=== PATIENT | female | born 1995 | race Caucasian/White ===

== ENCOUNTER 2017-03-06 05:45 | Emergency (ER) | payer OTHER ==
[~2017-03-06] VITALS: Ht 167.6 cm; Wt 85.7 kg
[~2017-03-06 05:45] MED LIST: AMPH10TA2 PO; BCPILLS PO; CITA20TA9 PO
[2017-03-06 05:48] VITALS: Ht 167.6 cm; Wt 85.7 kg
[2017-03-06] MEDS ORDERED: PSEUDOEPHEDRINE HCL 30 MG TAB PO STA (05:58)
[2017-03-06] MEDS ORDERED: ACETAMINOPHEN 500 MG TAB PO STA (05:58)
[2017-03-06] MEDS ORDERED: AMPH15CA7 PO (06:00)
[2017-03-06] MEDS ORDERED: MONT1TAB3 PO (06:01)
[2017-03-06] MEDS ORDERED: LEVO5TAB2 PO (06:01)
[2017-03-06] MEDS ORDERED: ALBUTEROL HFA 8 GM INHALER INH STA (06:16)
[2017-03-06 06:25] LABS: INFLUENZA B ANTIGEN Neg for Influ B (NEG)
--- NOTE | 2017-03-06 06:29 | DIAGNOSTIC IMAGING REPORT ---
CHEST 2 VIEWS ROUTINE CLINICAL HISTORY: cough/fever dyspnea COMPARISON STUDY: 08/24/2014 FINDINGS: The bones soft tissues and hemidiaphragms are normal. The cardiomediastinal silhouette is normal. The lungs are clear. The pulmonary vasculature is normal. IMPRESSION: Negative chest. The above report was generated using voice recognition software. It may contain grammatical, syntax or spelling errors. Electronically signed by: Angel Norman M.D. 03/06/2017 6:28 AM Dictated Date/Time: 03/06/2017 6:28 AM
[2017-03-06 06:30] VITALS: BP 115/77; PULSE 77; TEMP 36.8; O2SAT 96
--- NOTE | 2017-03-06 06:30 | EMERGENCY ROOM VISIT NOTE ---
History First contact with patient: 05:52 Chief Complaint: FLU LIKE SX Stated Complaint: FEVER,BODY ACHES, UPPER RESPIRATORY SX History of Present Illness The patient is a 21 year old female who presents to the Emergency Room with complaints of fever, chills, cough, congestion, myalgias and arthralgias for past 3 days. 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 She did receive the flu vaccine. Patient denies chest pain, dyspnea, neck stiffness, abdominal pain, vomiting, diarrhea. She is tolerating fluids but has a decreased appetite. Review of Systems See HPI for pertinent positives & negatives. A total of 10 systems reviewed and were otherwise negative. Past Medical/Surgical History Medical Problems: (1) Generalized anxiety disorder (2) Migraine Unspecified W/O Intract Mgrn W/O Status Migrainosus Surgical Problems: (1) No history of previous surgery Family History Anxiety disorder Social History Smoking Status: Never Smoker Alcohol Use: occasionally Drug Use: none Marital Status: single Housing Status: lives with significant other Occupation Status: employed Current/Historical Medications Scheduled Amphetamine-Dextroamphetamine 15MG (Adderall Xr 15MG), 15 MG PO DAILY Control Pills ( Control Pills), 1 TAB PO DAILY Citalopram Hydrobromide (Celexa), 30 MG PO DAILY Levocetirizine Dihydrochloride (Xyzal), 1 TAB PO DAILY Montelukast Sodium (Singulair), 10 MG PO DAILY Physical Exam Vital Signs Date Time Temp Pulse Resp B/P (MAP) Pulse Ox O2 Delivery O2 Flow Rate FiO2 03/06/17 05:48 38.3 105 18 116/78 96 Room Air Physical Exam VITALS: Vitals are noted on the nurse's note and reviewed by myself. Vital signs febrile. GENERAL: Pleasant female, in no acute distress, nondiaphoretic, well-developed well-nourished. SKIN: The skin was without rashes, erythema, edema, or bruising. There is no tenting of the skin. Capillary reflex less than 2 seconds. HEAD: Normocephalic atraumatic. EARS: External auditory canals clear, tympanic membranes pearly gallagher without erythema or effusion bilaterally. EYES: Pupils equal round and reactive to light and accommodation. Conjunctivae without injection, sclerae without icterus. Extraocular movements intact. NOSE: Patent, turbinates without inflammation or discharge. No sinus tenderness. MOUTH: Mucous membranes mildly dry pharynx without erythema or exudate. Uvula midline. Airway patent. Tongue does not deviate. NECK: Supple without nuchal rigidity. No lymphadenopathy. No thyromegaly. Cervical spine is nontender. No JVD. No meningeal signs HEART: Regular rate and rhythm without murmurs gallops or rubs. LUNGS: Clear to auscultation bilaterally without wheezes, rales or rhonchi. No dullness to percussion. No retractions or accessory muscle use. ABDOMEN: Positive bowel sounds x 4. Normal tympanic percussion. Soft, nontender, without masses or organomegaly. Barnett sign negative. No guarding or rebound tenderness. MUSCULOSKELETAL: No muscle atrophy, erythema, or edema noted. NEURO: Patient was alert and oriented to person place and time. Normal sensation to light and sharp touch. No focal neurological deficits. Medical Decision & Procedures Laboratory Results Test 03/06/17 05:55 Influenza Type A Antigen POS for Influ A (NEG) Influenza Type B Antigen Neg for Influ B (NEG) Medications Administered Medications (Trade) Dose Ordered Sig/Kayley Route Start Time Stop Time Status Last Admin Dose Admin Acetaminophen (Tylenol Tab) 1,000 mg NOW STAT PO 03/06/17 05:58 03/06/17 06:00 DC 03/06/17 06:18 1,000 MG Pseudoephedrine HCl (Sudafed Tab) 60 mg NOW STAT PO 03/06/17 05:58 03/06/17 06:00 DC 03/06/17 06:17 60 MG Albuterol (Ventolin Hfa Inhaler) 2 puffs ONE STAT INH 03/06/17 06:16 03/06/17 06:17 DC 03/06/17 06:23 2 PUFFS ED Course Prior records/ancillary studies reviewed. Triage Nursing notes reviewed. The patient's history was concerning for fever. Differential diagnosis: Etiologies such as viral syndrome, otitis, pharyngitis, pneumonia, influenza, meningitis, urinary tract infection, sepsis, bacteremia, as well as others were entertained. Physical examination: Patient is alert and mildly ill-appearing ER treatment provided: By mouth fluids, Tylenol, Sudafed, albuterol On reassessment the patient felt better. Diagnostics interpreted by me: The labs revealed flu a Imaging studies: Chest x-ray with no acute consolidation, pneumothorax or free air per my interpretation This appears to be consistent with influenza. Patient was advised to continue supportive care for her flulike illness and stay well-hydrated. She is advised no work until 24 hours fever free as she is contagious. She is advised to rest, stay well-hydrated, follow-up family care in a few days or here in the ER sooner for high fevers, lethargy, neck stiffness, is worsening signs or symptoms or as needed. By the evaluation outlined above emergent etiologies such as otitis, pharyngitis, pneumonia, meningitis, urinary tract infection, sepsis, bacteremia, as well as others were deemed relatively unlikely. The pt informed about the findings as listed above. All questions were answered and pleased with the treatment. Return instructions were outlined and the patient was discharged in stable condition. Referral: The patient was referred back to their primary care physician for follow-up in 2 to 3 days for a recheck of the current condition. Medical Decision As above Medication Reconcilliation Current Medication List: was personally reviewed by me Blood Pressure Screening Patient's blood pressure: Normal blood pressure Impression Primary Impression: Influenza A Departure Information Dispostion Home / Self-Care Condition GOOD Referrals Ralf Hutchinson MD (PCP) Patient Instructions My [facility] Additional Instructions Acetaminophen(Tylenol) may be used for fever or pain. Use 1000mg every six hours as needed. Avoid using more than 3000mg in a 24 hour period. (AND/OR) Ibuprofen(Motrin, Advil) may be used for fever or pain. Use 600mg every six hours as needed. Take with food. Avoid using more than 2400mg in a 24 hour period. Do not use 2400mg per day for more than three consecutive days without physician direction. Prolonged inappropriate use can lead to stomach upset or ulcers. Afrin nasal spray: 2-3 sprays to each nostril twice daily as needed for congestion. Do not use for more than 3-4 days because it can lead to worsening rebound congestion. Pseudoephedrine(Sudaphed): 30-60mg every 6 hours as needed for nasal congestion. Do not take this with other stimulant products or supplements. Albuterol Inhaler: Take 2 puffs four times daily for seven days, then as needed. Rest and drink plenty of fluids. Controlling your fever with Tylenol and Ibuprofen as above will make you feel better. Wash your hands after nose blowing, sneezing, or coughing. Most germs are spread through contact, therefore improper hygiene may result in your close contacts and loved ones becoming ill just like you. Continue current medications. Return to the ER for severe headache, neck stiffness, chest pain, difficulty breathing, fevers, vomiting, worsening of your condition, or as needed. Follow up with your primary physician this week for a recheck of your current condition.
== END 2017-03-06 06:32 | disposition home or self-care (01) ==
LOC: C.EDB 05:47
DX: J10.1 Influenza due to other identified influenza virus with other respiratory manifestations (principal); F41.1 Generalized anxiety disorder; Z79.3 Long term (current) use of hormonal contraceptives; Z81.8 Family history of other mental and behavioral disorders

== ENCOUNTER 2022-07-05 23:59 | Inpatient (IN) ==
[2022-07-06] MEDS ORDERED: ALBUT/IPRATROP 3MG/0.5MG NEB 3 ML VIAL NEB STA (00:20)
[2022-07-06] MEDS ORDERED: dexAMETHasone**PF** 10 MG/ML VIAL PO ONE (00:20)
[2022-07-06] MEDS ORDERED: SODIUM CHLORIDE 0.9% 1000ML 1,000 ML IV ONE (01:49)
[2022-07-06 02:07] LABS: Basophils # (auto) 0.04 K/uL (0-0.2); Basophils % (auto) 0.4 %; Eosinophils # (auto) 0.09 K/uL (0-0.50); Hemoglobin 14.1 g/dl (12.0-16.0); Immature Granulocytes # (auto) 0.04 K/uL (0.01-0.20); Immature Granulocytes % (auto) 0.4 %; Lymphocytes # (auto) 0.85 K/uL (1.2-3.4); Lymphocytes % (auto) 9.2 %; Mean Corpuscular Hemoglobin 31.4 pg (25.0-34.0); Mean Corpuscular Hgb Conc 33.6 g/dL (32.0-36.0); Mean Corpuscular Volume 93.5 fL (80.0-100.0); Monocytes # (auto) 0.45 K/uL (0.11-0.59); Monocytes % (auto) 4.9 %; Neutrophils # (auto) 7.79 K/uL (1.40-6.50); Neutrophils % (auto) 84.1 %; Platelet Count 207 K/uL (130-400); RDW Coefficient of Variation 13.9 % (11.5-14.5); RDW Standard Deviation 47.3 fL (36.4-46.3); Red Blood Count 4.49 M/uL (4.20-5.40); White Blood Count 9.26 K/ul (4.8-10.8)
[2022-07-06 02:24] LABS: Albumin Globulin Ratio 1.3 (0.9-2); Albumin Level 3.9 gm/dl (3.4-5.0); BUN Creatinine Ratio 9.6 (10-20); Bilirubin,Total 0.4 mg/dl (0.2-1.0); Calcium 8.7 mg/dl (8.6-10.3); Creatinine Clr Calc Pharmacy 121.4 ml/min; Est GFR (African American) 112.8 ml/min; Est GFR (Non-African American) 97.3 ml/min; Magnesium 1.9 mg/dl (1.7-2.4); Potassium 3.9 mmol/L (3.5-5.1); Total Protein 6.9 gm/dl (6.0-8.3)
[2022-07-06 02:30] LABS: Troponin I High Sensitivity 3.3 pg/ml (0-14)
[2022-07-06 02:33] LABS: Prothrombin Time 10.7 Seconds (9.0-12.0)
[2022-07-06 02:36] LABS: D Dimer 590 ug/L FEU (0-500)
[2022-07-06] MEDS ORDERED: OPTIRAY 320 500ml IV ONE (03:17)
--- NOTE | 2022-07-06 03:25 | Emergency Department Note ---
Impression & Plan Multifocal pneumonia, Hypoxia ED Provider Note CHIEF COMPLAINT: Cough, fever HISTORY OF PRESENT ILLNESS: This 26-year-old female patient presents to the emergency department via private vehicle for evaluation of 4-day history of cough and fever. The patient states on Tuesday, 1 to 2 days into the illness, she developed cough and fever. The patient states there was some mild shortness of breath. She was started on Augmentin at that time. The patient states she is using albuterol inhaler 2 puffs every 4 hours without significant improvement in her symptoms. She is still feeling short of breath, persistent coughing, and still having fevers. The patient denies any chest pain. No abdominal pain, nausea, vomiting. No coughing up blood. She is coughing up some sputum. She reports a fullness in the right side of the chest. Patient denies any leg pain or swelling. No recent travel. She is not on estrogen control. REVIEW OF SYSTEMS: A 10 system review of systems was performed with positives and pertinent negatives listed in the history of present illness. All other systems were reviewed and are negative. ALLERGIES: None PHYSICAL EXAM: VITALS: Vitals are noted on the nurse's note and reviewed by myself. Vital signs stable. GENERAL: This is a 26-year-old female, in no acute distress, nondiaphoretic, well-developed well-nourished. SKIN: The skin was without rashes, erythema, edema, or bruising. There is no tenting of the skin. Capillary refill less than 2 seconds. HEAD: Normocephalic atraumatic. EARS: External auditory canals clear, tympanic membranes pearly gallagher without erythema or effusion bilaterally. EYES: Pupils equal round and reactive to light and accommodation. Conjunctivae without injection, sclerae without icterus. Extraocular movements intact. NOSE: Patent, turbinates without inflammation or discharge. No sinus tenderness. MOUTH: Mucous membranes moist. Tonsils are not enlarged. Pharynx without erythema or exudate. Uvula midline. Airway patent. Tongue does not deviate. NECK: Supple without nuchal rigidity. No lymphadenopathy. Cervical spine is nontender. No JVD. HEART: Regular rate and rhythm without murmurs gallops or rubs. LUNGS: Rhonchi noted in the right mid to lower lung solo. No retractions or accessory muscle use. MUSCULOSKELETAL: No muscle atrophy, erythema, or edema noted. Full range of motion without joint tenderness in all extremities. No tenderness to palpation. Normal gait. Strength 5/5 throughout. NEURO: Patient was alert and oriented to person place and time. No focal neurological deficits. CHEST X-ray, interpreted by me: Right lower lobe infiltrate EMERGENCY DEPARTMENT COURSE: The patient was seen and evaluated as above. Patient presents with URI symptoms consistent with bronchitis. Chest x-ray reviewed by me concerning for right lower lobe infiltrate. Patient was med icated with a DuoNeb treatment and Decadron. She was reassessed. At this time, she notes she is feeling slightly better, but continuing to feel somewhat short of breath. I was informed by nursing at this time that the patient did require some oxygen, her O2 saturation dropped to 87% for several minutes. She has been on oxygen since that time. Continuous manager monitoring was applied. This showed a normal sinus rhythm with a ventricular rate of 85 bpm, per my interpretation. Given the hypoxia, we did elect to perform further evaluation. IV access obtained, labs drawn. Patient was medicated with IV fluids. D-dimer was elevated, so CT angiogram of the chest was completed. This was reviewed and was negative for PE, but concerning for multifocal pneumonia. Given the multifocal pneumonia and hypoxia, I did recommend inpatient treatment. The patient was agreeable. She will be admitted to the [facility]. I did speak with Dr. Head. Please see [facility] dictation regarding ongoing management care of this patient. Differential diagnosis includes reactive airway disease, pneumonia, pneumothorax, COPD, CHF, infections, cardiac ischemia, pulmonary embolism, musculoskeletal, gastrointestinal, as well as other pathologies. I attest that I have personally reviewed the patient's current medication list. Patient was found to have normal blood pressure on screening and does not require follow-up. The chart was completed utilizing [employer] voice recognition software. Grammatical errors, random word insertions, pronoun errors, and incomplete sentences are an occasional consequence of this system due to software limitations, ambient noise, and hardware issues. Any formal questions or concerns about the content, text, or information contained within the body of this dictation should be directly addressed to the provider for clarification. Past Med/Surg History Medical History Headache Social History Smoking Status: Former smoker Feels Safe at Home: Yes Allergies Allergies Allergy/AdvReac Type Severity Reaction Status Date / Time No Known Allergies Allergy Unknown Verified 07/06/22 00:58 Home Meds Home Medications Medication Instructions Recorded Confirmed albuterol sulfate 90 mcg/actuation 2 puff inhalation Q4H PRN 07/06/22 07/06/22 aerosol inhaler Shortness Of Breath Or Wheezing amoxicillin 875 mg-potassium 1 tab PO BID 07/06/22 07/06/22 clavulanate 125 mg tablet azelastine 137 mcg (0.1 %) nasal 2 spray intranasal BID 07/06/22 07/06/22 spray aerosol benzonatate 100 mg capsule 100 mg PO TID PRN Cough 07/06/22 07/06/22 dextroamphetamine-amphetamine ER 40 mg PO QAM 07/06/22 07/06/22 20 mg 24hr capsule,extend release hydroxyzine HCl 25 mg tablet 25 mg PO HS PRN Anxiety 07/06/22 07/06/22 levocetirizine 5 mg tablet 5 mg PO DAILY 07/06/22 07/06/22 tretinoin 0.05 % topical cream 1 applic topical HS PRN NEEDED 07/06/22 07/06/22 PER PT venlafaxine 150 mg 150 mg PO QAM 07/06/22 07/06/22 capsule,extended release 24 hr Results & Data (ED) Vital Signs Vital Signs - 24 hr 07/06/22 00:03 07/06/22 01:22 07/06/22 01:56 Temperature 35.9 C L Temperature Source Temporal Artery Scan Pulse Rate 119 H 98 H Pulse Rate [Finger] 94 H Respiratory Rate 20 22 Respiratory Effort / Characteristics Non-Labored Spontaneous Non-Labored Spontaneous Respiratory Depth Normal Normal Blood Pressure 137/84 Blood Pressure [Left Arm] Blood Pressure Mean 101 Blood Pressure Mean [Left Arm] Blood Pressure Position Sitting Pulse Oximetry 93 90 88 L Oxygen Delivery Method Room Air Room Air Room Air Oxygen Flow Rate 0 Sepsis Recent Fever Within 48 Hours Yes Sepsis New/Unexplained Change in Mental Status N/A Sepsis Action Taken by Nursing No Action Required 07/06/22 02:33 07/06/22 03:24 07/06/22 04:44 Temperature Temperature Source Pulse Rate Pulse Rate [Finger] 96 H 99 H 84 Respiratory Rate 20 20 18 Respiratory Effort / Characteristics Non-Labored Spontaneous Non-Labored Spontaneous Respiratory Depth Normal Normal Blood Pressure Blood Pressure [Left Arm] 113/76 113/68 119/76 Blood Pressure Mean Blood Pressure Mean [Left Arm] 88 83 90 Blood Pressure Position Pulse Oximetry 92 92 94 Oxygen Delivery Method Nasal Cannula Nasal Cannula Nasal Cannula Oxygen Flow Rate 3 2 2 Sepsis Recent Fever Within 48 Hours Sepsis New/Unexplained Change in Mental Status Sepsis Action Taken by Nursing 07/06/22 02:25 07/06/22 06:17 Temperature Temperature Source Pulse Rate 98 H 85 Pulse Rate [Finger] Respiratory Rate Respiratory Effort / Characteristics Respiratory Depth Blood Pressure Blood Pressure [Left Arm] Blood Pressure Mean Blood Pressure Mean [Left Arm] Blood Pressure Position Pulse Oximetry Oxygen Delivery Method Oxygen Flow Rate Sepsis Recent Fever Within 48 Hours Sepsis New/Unexplained Change in Mental Status Sepsis Action Taken by Nursing Laboratory Data 07/06/22 01:55 07/06/22 01:55 Lab Results 07/06/22 07/06/22 07/06/22 Range/Units 01:55 01:55 01:55 WBC 9.26 (4.8-10.8) K/ul RBC 4.49 (4.20-5.40) M/uL Hgb 14.1 (12.0-16.0) g/dl Hct 42.0 (37.0-47.0) % MCV 93.5 (80.0-100.0) fL MCH 31.4 (25.0-34.0) pg MCHC 33.6 (32.0-36.0) g/dL RDW Std Deviation 47.3 H (36.4-46.3) fL RDW Coeff of Jovanni 13.9 (11.5-14.5) % Plt Count 207 (130-400) K/uL MPV 10.0 (9.4-12.4) fL Immature Gran % (Auto) 0.4 % Neut % (Auto) 84.1 % Lymph % (Auto) 9.2 % Seneca % (Auto) 4.9 % Eos % (Auto) 1.0 % Baso % (Auto) 0.4 % Neut # (Auto) 7.79 H (1.40-6.50) K/uL Lymph # (Auto) 0.85 L (1.2-3.4) K/uL Seneca # (Auto) 0.45 (0.11-0.59) K/uL Eos # (Auto) 0.09 (0-0.50) K/uL Baso # (Auto) 0.04 (0-0.2) K/uL Immature Gran # (Auto) 0.04 (0.01-0.20) K/uL PT 10.7 (9.0-12.0) Seconds INR 1.0 (0.9-1.1) D-Dimer 590 H* (0-500) ug/L FEU Sodium 137 (136-145) mmol/L Potassium 3.9 (3.5-5.1) mmol/L Chloride 103 (98-107) mmol/L Carbon Dioxide 25 (21-32) mmol/L Anion Gap 9 (3-11) BUN 8 (6-23) mg/dl Creatinine 0.83 (0.6-1.2) mg/dl Est Cr Clr Drug Dosing 121.4 ml/min Est GFR ( Amer) 112.8 ml/min Est GFR (Non-Af Amer) 97.3 ml/min BUN/Creatinine Ratio 9.6 L (10-20) Glucose 101 H (70-99(Fasting)) mg/dl Calcium 8.7 (8.6-10.3) mg/dl Magnesium 1.9 (1.7-2.4) mg/dl Total Bilirubin 0.4 (0.2-1.0) mg/dl AST 23 (13-39) U/L ALT 38 (7-52) U/L Alkaline Phosphatase 72 (34-104) U/L Troponin I High Sens 3.3 (0-14) pg/ml Total Protein 6.9 (6.0-8.3) gm/dl Albumin 3.9 (3.4-5.0) gm/dl Globulin 3.0 (2.5-4.0) gm/dl Albumin/Globulin Ratio 1.3 (0.9-2) Procalcitonin (0-0.5) ng/ml POC Ur Test (NEG) SARS-CoV-2 (PCR) (Negative) Influenza Type A (PCR) (Neg) Influenza Type B (PCR) (Neg) RSV (RT-PCR) (Neg) 07/06/22 07/06/22 07/06/22 Range/Units 01:55 Unknown Unknown WBC (4.8-10.8) K/ul RBC (4.20-5.40) M/uL Hgb (12.0-16.0) g/dl Hct (37.0-47.0) % MCV (80.0-100.0) fL MCH (25.0-34.0) pg MCHC (32.0-36.0) g/dL RDW Std Deviation (36.4-46.3) fL RDW Coeff of Jovanni (11.5-14.5) % Plt Count (130-400) K/uL MPV (9.4-12.4) fL Immature Gran % (Auto) % Neut % (Auto) % Lymph % (Auto) % Seneca % (Auto) % Eos % (Auto) % Baso % (Auto) % Neut # (Auto) (1.40-6.50) K/uL Lymph # (Auto) (1.2-3.4) K/uL Seneca # (Auto) (0.11-0.59) K/uL Eos # (Auto) (0-0.50) K/uL Baso # (Auto) (0-0.2) K/uL Immature Gran # (Auto) (0.01-0.20) K/uL PT (9.0-12.0) Seconds INR (0.9-1.1) D-Dimer (0-500) ug/L FEU Sodium (136-145) mmol/L Potassium (3.5-5.1) mmol/L Chloride (98-107) mmol/L Carbon Dioxide (21-32) mmol/L Anion Gap (3-11) BUN (6-23) mg/dl Creatinine (0.6-1.2) mg/dl Est Cr Clr Drug Dosing ml/min Est GFR ( Amer) ml/min Est GFR (Non-Af Amer) ml/min BUN/Creatinine Ratio (10-20) Glucose (70-99(Fasting)) mg/dl Calcium (8.6-10.3) mg/dl Magnesium (1.7-2.4) mg/dl Total Bilirubin (0.2-1.0) mg/dl AST (13-39) U/L ALT (7-52) U/L Alkaline Phosphatase (34-104) U/L Troponin I High Sens (0-14) pg/ml Total Protein (6.0-8.3) gm/dl Albumin (3.4-5.0) gm/dl Globulin (2.5-4.0) gm/dl Albumin/Globulin Ratio (0.9-2) Procalcitonin 0.07 (0-0.5) ng/ml POC Ur Test NEG (NEG) SARS-CoV-2 (PCR) NEGATIVE (Negative) Influenza Type A (PCR) Negative (Neg) Influenza Type B (PCR) Negative (Neg) RSV (RT-PCR) Negative (Neg) Administered Medications Discontinued Medications Albuterol (Albut/Ipratrop 3mg/0.5mg Neb 3 Ml Vial) 3 ml NEB NOW STA; Protocol Stop: 07/06/22 00:21 Last Admin: 07/06/22 00:30 Dose: 3 ml Documented By: DESEAN Dexamethasone Sodium Phosphate (DexamethasonePf 10 Mg/Ml Vial) 10 mg PO NOW ONE Stop: 07/06/22 00:21 Last Admin: 07/06/22 00:30 Dose: 10 mg Documented By: DESEAN Sodium Chloride (Nss 1000ml) 1,000 mls @ 999 mls/hr IV .Q1H1M ONE Stop: 07/06/22 02:49 Last Infusion: 07/06/22 04:38 Dose: 0 mls/hr Documented By: Admin: 07/06/22 02:29 Dose: 999 mls/hr Documented By: DESEAN Ioversol (Optiray 320 500ml) 125 ml IV ONCE ONE Stop: 07/06/22 03:18 Last Admin: 07/06/22 03:18 Dose: 114 ml Documented By: JAY Imaging Data Radiologist's Impression: Chest CTA 07/06/22 02:37 Exam(s): CTA CHEST IV Amt: 114 ml optiray 320 EXAM: CT Angiography Chest With Intravenous Contrast CLINICAL HISTORY: Hypoxia. TECHNIQUE: Axial computed tomographic angiography images of the chest with intravenous contrast. Automated exposure control was utilized for the study. A dose lowering technique was utilized adhering to the principles of ALARA. MIP reconstructed images were created and reviewed. COMPARISON: CTA chest 08/21/2012 FINDINGS: Pulmonary arteries: Unremarkable. No pulmonary embolus. Aorta: No acute findings. No thoracic aortic aneurysm. Lungs: Diffuse airspace opacities throughout both lungs, right greater than left. Pleural space: Unremarkable. No significant effusion. No pneumothorax. Heart: Unremarkable. No cardiomegaly. No significant pericardial effusion. No evidence of RV dysfunction. Mediastinum: Bilateral hilar lymphadenopathy measures up to 1.2 cm. Bones/joints: No acute fracture. No dislocation. Soft tissues: Unremarkable. Lymph nodes: See above. IMPRESSION: 1. No pulmonary embolus. 2. Diffuse airspace opacities throughout both lungs, right greater than left. This is concerning for multifocal pneumonia and/or aspiration. 3. Bilateral hilar lymphadenopathy measures up to 1.2 cm. This is nonspecific but likely reactive. Electronically signed by: Karen Polo MD 07/06/22 04:11 AM Discharge Plan Visit Data Chief Complaint: Flu Like Symptoms Stated Complaint: FEVER,CHEST CONGESTION,WHEEZING,LUNG PAIN X 5DYS ED Provider: Lesa Zamora ED Midlevel Provider: Luly Rose Discharge Problem: Multifocal pneumonia, Hypoxia Patient Disposition: Admitted As Inpatient Forms Stand Alone Forms: [facility] Prescriptions Prescriptions: No Action venlafaxine 150 mg capsule,extended release 24hr 150 mg PO QAM tretinoin 0.05 % cream 1 applic TOPICAL HS PRN (Reason: NEEDED PER PT) dextroamphetamine-amphetamine 20 mg capsule,extended release 24hr 40 mg PO QAM benzonatate 100 mg capsule 100 mg PO TID PRN (Reason: Cough) hydroxyzine HCl 25 mg tablet 25 mg PO HS PRN (Reason: Anxiety) azelastine 137 mcg (0.1 %) aerosol,spray 2 spray INTRANASAL BID albuterol sulfate 90 mcg/actuation HFA aerosol inhaler 2 puff INHALATION Q4H PRN (Reason: Shortness Of Breath Or Wheezing) amoxicillin-pot clavulanate 875-125 mg tablet 1 tab PO BID Rx Instructions: STARTED 07/04/22 FOR 7 DAYS levocetirizine 5 mg tablet 5 mg PO DAILY Referrals Referrals: Richard Osorio DO [Primary Care Provider] -
[2022-07-06 03:27] LABS: Influenza A virus by PCR Negative (Neg); Influenza B virus by PCR Negative (Neg); RSV by PCR Negative (Neg); SARS CoV2 RNA(COVID-19) Ceph NEGATIVE (Negative)
--- NOTE | 2022-07-06 04:17 | CT Scan Report ---
Exam(s): CTA CHEST IV Amt: 114 ml optiray 320 EXAM: CT Angiography Chest With Intravenous Contrast CLINICAL HISTORY: Hypoxia. TECHNIQUE: Axial computed tomographic angiography images of the chest with intravenous contrast. Automated exposure control was utilized for the study. A dose lowering technique was utilized adhering to the principles of ALARA. MIP reconstructed images were created and reviewed. COMPARISON: CTA chest 08/21/2012 FINDINGS: Pulmonary arteries: Unremarkable. No pulmonary embolus. Aorta: No acute findings. No thoracic aortic aneurysm. Lungs: Diffuse airspace opacities throughout both lungs, right greater than left. Pleural space: Unremarkable. No significant effusion. No pneumothorax. Heart: Unremarkable. No cardiomegaly. No significant pericardial effusion. No evidence of RV dysfunction. Mediastinum: Bilateral hilar lymphadenopathy measures up to 1.2 cm. Bones/joints: No acute fracture. No dislocation. Soft tissues: Unremarkable. Lymph nodes: See above. IMPRESSION: 1. No pulmonary embolus. 2. Diffuse airspace opacities throughout both lungs, right greater than left. This is concerning for multifocal pneumonia and/or aspiration. 3. Bilateral hilar lymphadenopathy measures up to 1.2 cm. This is nonspecific but likely reactive. Electronically signed by: Karen Polo MD 07/06/22 04:11 AM
--- NOTE | 2022-07-06 06:34 | History and Physical Report ---
DATE OF ADMISSION: 07/06/2022. CHIEF COMPLAINT: Flu-like symptoms, cough. HISTORY OF PRESENT ILLNESS: This is a 26-year-old female with past medical history significant for nonseasonal allergic rhinitis, mild persistent asthma, deviated nasal septum, dermatographism, history of allergic bilateral conjunctivitis, history of migraines, generalized anxiety disorder, ADHD, depression, comes with ongoing cough and cold-like symptoms since last . Once in a while she brings up phlegm, lot of cough, cough is causing some headache. Says she had high temperatures of 103F degrees. She went to [facility] on Tuesday and was prescribed Augmentin. As her symptoms not getting better came to the ER. In the ER, at one point, she was desaturating to 88%, requiring 2 L of oxygen and D-dimer was elevated at 590. CTA chest was done. There is no PE, but showed multifocal pneumonia. SARS-CoV-2 PCR negative. Influenza and RSV negative. Procalcitonin 0.07. The patient is resting comfortably, hemodynamically stable. Denies any chest pain. Appetite is down because of illness. Feels nauseous, but no vomiting, no abdominal pain. Normal bowel and bladder movements. No blurred visions, no earache. Has some runny nose. No sore throat. ALLERGIES: No known drug allergies. PAST MEDICAL HISTORY: As mentioned above. PAST SURGICAL HISTORY: Colonoscopy, EGD ,Forearm nevus reoved at [facility] in 1999. MEDICATIONS: The patient is on albuterol 2 puffs inhalation q. 4 hours p.r.n., Augmentin 1 tablet p.o. b.i.d., azelastine 2 sprays intranasal b.i.d., Tessalon Perles 100 mg p.o. t.i.d. p.r.n., dextroamphetamine, Adderall 40 mg p.o. a.m., hydroxyzine 25 mg p.o. at bedtime p.r.n., levocetirizine 5 mg p.o. daily, venlafaxine 150 mg p.o. a.m. FAMILY HISTORY: Significant for sister has allergies, brother has asthma, uncle has Crohn's disease. Sister has eczema, maternal grandmother has hypertension. SOCIAL HISTORY: Smoked cigarettes from [id number]. Alcohol occasional. No drug use. REVIEW OF SYSTEMS: As per HPI. Rest of the review of systems is negative. PHYSICAL EXAMINATION: GENERAL: The patient is obese, not in acute distress. VITAL SIGNS: Temperature 35.9, pulse 84, respiratory rate 18, blood pressure 119/76, oxygen 94% on 2 liters. HEENT: Pupils equal, round and reactive to light. Oral mucosa moist. NECK: No JVD. No neck masses. CARDIOVASCULAR: S1 and S2 heard. Regular rate and rhythm. No murmur, no gallop. RESPIRATORY SYSTEM: Normal AP diameter. No accessory muscle use. Bilateral rhonchi heard. No obvious wheezing. ABDOMEN: Soft, bowel sounds present, nontender, no distention. CENTRAL NERVOUS SYSTEM: Alert and oriented. Speech is clear. No facial droop. Obeys commands. EXTREMITIES: No edema, no erythema. LABORATORY DATA: WBC 9.2, hemoglobin 14.1, hematocrit 42, platelets 207. PT 10.7, INR 1. D-dimer 590. Sodium 137, potassium 3.9, chloride 103, bicarbonate 25, BUN 8, creatinine 0.8, serum glucose 101, calcium 8.7, magnesium 1.9, total bilirubin 0.4, AST 23, ALT 38, alkaline phosphatase 102. Troponin I high sensitivity 3.3. Procalcitonin 0.07. test negative. SARS-CoV-2 PCR negative. Influenza A and B PCR negative. RSV PCR negative. IMAGING DATA: Chest x-ray, no acute findings. CTA of the chest, : 1. No pulmonary embolus. 2. Diffuse airspace opacities throughout both lungs, right greater than left. This is concerning for multifocal pneumonia and/or aspiration. 3. Bilateral hilar lymphadenopathy measures up to 1.2 cm. This is nonspecific but likely reactive. EKG, normal sinus rhythm at a rate of 100, possible left atrial enlargement. ASSESSMENT AND PLAN: This 26-year-old female presents with ongoing respiratory illness and possible mild asthma exacerbation. 1. Multifocal pneumonia on CAT scan, possibly viral pneumonia. Asthma exacerbation.Procalcitonin is negative. Having cold-like symptoms with cough and wheezing going on since last . There is a question of aspiration, so empirically placed on Zosyn and doxycycline. Received Decadron in the ER. We will continue with IV Solu-Medrol 40 mg t.i.d., nebs around the clock and p.r.n. T 2. Mild elevation of D-dimer. CT chest, no pulmonary embolus. 3. History of generalized anxiety disorder, attention-deficit/hyperactivity disorder, depression. Continue her home Adderall and venlafaxine. 4. History of non-seasonal allergic rhinitis. Continue levocetirizine. 5. Deep venous thrombosis prophylaxis: Placed on Lovenox. Addendum: resp biofire positive for metapneumonic virus. Droplet precautions. DISPOSITION: Closely monitor in the med tele. Expect to discharge home and follow with family doctor. Job ID: [id number] [facility]
[2022-07-06 07:04] LABS: Adenovirus PCR Not Detected (NotDetected); Bordetella parapertussis PCR Not Detected (NotDetected); Bordetella pertussis PCR Not Detected (NotDetected); Chlamydia pneumoniae PCR Not Detected (NotDetected); Coronavirus 229E PCR Not Detected (NotDetected); Coronavirus CoV-2 (COVID19)PCR Not Detected (NotDetected); Coronavirus HKU1 PCR Not Detected (NotDetected); Coronavirus NL63 PCR Not Detected (NotDetected); Coronavirus OC43PCR Not Detected (NotDetected); Influenza A PCR Not Detected (NotDetected); Influenza B PCR Not Detected (NotDetected); Mycoplasma pneumoniae PCR Not Detected (NotDetected); Parainfluenza Virus 1 PCR Not Detected (NotDetected); Parainfluenza Virus 2 PCR Not Detected (NotDetected); Parainfluenza Virus 3 PCR Not Detected (NotDetected); Parainfluenza Virus 4 PCR Not Detected (NotDetected); Respiratory Syncytial VirusPCR Not Detected (NotDetected); Rhinovirus/Enterovirus PCR Not Detected (NotDetected)
[2022-07-06 07:11] LABS: Human Metapneumovirus PCR DETECTED (NotDetected)
--- NOTE | 2022-07-06 08:04 | XRay Report ---
XR chest 1V portable HISTORY: cough COMPARISON: Chest CTA 07/06/2022. FINDINGS: Patchy bilateral airspace opacities, right greater the left likely representing a pneumonia . No pneumothorax. No pleural effusions. The cardiac silhouette is normal in size. IMPRESSION: Patchy bibasilar airspace opacities likely representing a pneumonia. ACT 112: Negative or not required by law. Electronically signed by: Lowell Minor M.D. 07/06/2022 7:53 AM
[2022-07-06] MEDS ORDERED: ALBUTEROL HFA 8 GM INHALER INH PRN (08:05)
[2022-07-06] MEDS ORDERED: LEVALBUTEROL HCL 1.25 MG/3 ML NEB NEB PRN (08:05)
[2022-07-06] MEDS ORDERED: POLYETHYLENE (MIRALAX) 17 GM PACK PO PRN (08:05)
[2022-07-06] MEDS ORDERED: NITROGLYCERIN SL 0.4 MG/TAB TAB SL PRN (08:05)
[2022-07-06] MEDS ORDERED: hydrOXYzine HCl 25 MG TAB PO PRN (08:05)
[2022-07-06] MEDS ORDERED: SODIUM CHLORIDE 0.9% 1000ML 1,000 ML IV SCH (08:05)
[2022-07-06] MEDS: CETIRIZINE HCL 10 MG TABLET PO SCH (08:41)
[2022-07-06] MEDS: AZELASTINE HCL 0.1% NASAL 200 SPRAYS/27,400 MCG BTL SCH ×2 (08:41→20:50)
[2022-07-06] MEDS: VENLAFAXINE HCL XR 150 MG CAPXR PO SCH (08:42)
[2022-07-06] MEDS: ENOXAPARIN INJ 40 MG/0.4 ML SYR SQ SCH ×2 (08:42→21:18)
[2022-07-06] MEDS: AMPHETAMINE ASP/SULF/DEXTRAMPH ER 20 MG CAP PO SCH (08:44)
[2022-07-06] MEDS ORDERED: PIPERACILLIN/TAZOBACTAM 4.5 GM (over 30 mins) IV ONE (08:45)
[2022-07-06] MEDS: ACETAMINOPHEN 325 MG TAB PO PRN ×2 (08:45→21:51)
[2022-07-06] MEDS: BENZONATATE 100 MG CAPSULE PO PRN ×2 (08:45→16:48)
[2022-07-06] MEDS ORDERED: XOPENEX/ATROVENT 1.25mg/0.5MG NEB COMBO NEB SCH (09:00)
[2022-07-06] MEDS: methylPREDNISolone 40 MG in SYRINGE 0 ML IV SCH ×3 (09:14→20:50)
[2022-07-06] MEDS: DOXYCYCLINE HYCLATE 100 MG in DEXTROSE 5% 100 ML IV SCH ×2 (09:15→21:18)
[2022-07-06] MEDS: IPRATROPIUM BROMIDE NEB SOLN 0.02% 2.5 ML VIAL INH SCH ×4 (11:35→19:22)
[2022-07-06] MEDS: LEVALBUTEROL 1.25MG/0.5ML NEB INH SCH ×4 (11:35→19:22)
[2022-07-06] MEDS: PIPERACILLIN/TAZOBACTAM 4.5 GM in DEXTROSE 5% 100 ML IV SCH ×2 (13:37→20:50)
--- NOTE | 2022-07-06 19:56 | Electrocardiogram Report ---
Test Reason : Blood Pressure : / mmHG Vent. Rate : 100 BPM Atrial Rate : 100 BPM P-R Int : 138 ms QRS Dur : 074 ms QT Int : 344 ms P-R-T Axes : 039 001 038 degrees QTc Int : 443 ms Normal sinus rhythm Possible Left atrial enlargement Septal infarct , age undetermined Abnormal ECG When compared with ECG of 24-AUG-2014 18:53, Septal infarct is now Present Confirmed by Sidney Fabian ([id number]) on 07/06/2022 7:55:36 PM Referred By: REFERRED SELF Confirmed By:Sidney Fabian
[2022-07-07] MEDS: guaiFENesin SUGAR FREE 200 MG/10 ML UDC PO PRN ×3 (04:06→21:58)
[2022-07-07 05:58] LABS: Basophils # (auto) 0.01 K/uL (0-0.2); Basophils % (auto) 0.1 %; Hematocrit (blood only) 40.4 % (37.0-47.0); Hemoglobin 13.6 g/dl (12.0-16.0); Immature Granulocytes # (auto) 0.07 K/uL (0.01-0.20); Immature Granulocytes % (auto) 0.7 %; Lymphocytes # (auto) 0.77 K/uL (1.2-3.4); Lymphocytes % (auto) 7.6 %; Mean Corpuscular Hemoglobin 31.8 pg (25.0-34.0); Mean Corpuscular Hgb Conc 33.7 g/dL (32.0-36.0); Mean Corpuscular Volume 94.4 fL (80.0-100.0); Monocytes # (auto) 0.59 K/uL (0.11-0.59); Monocytes % (auto) 5.8 %; Neutrophils # (auto) 8.74 K/uL (1.40-6.50); Neutrophils % (auto) 85.8 %; Platelet Count 263 K/uL (130-400); RDW Coefficient of Variation 13.8 % (11.5-14.5); RDW Standard Deviation 47.9 fL (36.4-46.3); Red Blood Count 4.28 M/uL (4.20-5.40); White Blood Count 10.18 K/ul (4.8-10.8)
[2022-07-07] MEDS: PIPERACILLIN/TAZOBACTAM 4.5 GM in DEXTROSE 5% 100 ML IV SCH ×2 (06:06→13:52)
[2022-07-07 06:15] LABS: BUN Creatinine Ratio 15.7 (10-20); Est GFR (African American) 138.6 ml/min; Est GFR (Non-African American) 119.6 ml/min; Magnesium 2.2 mg/dl (1.7-2.4); Potassium 4.8 mmol/L (3.5-5.1)
[2022-07-07] MEDS: IPRATROPIUM BROMIDE NEB SOLN 0.02% 2.5 ML VIAL INH SCH ×4 (07:16→20:34)
[2022-07-07] MEDS: LEVALBUTEROL 1.25MG/0.5ML NEB INH SCH ×4 (07:16→20:34)
[2022-07-07] MEDS: DOXYCYCLINE HYCLATE 100 MG in DEXTROSE 5% 100 ML IV SCH ×2 (08:50→19:46)
[2022-07-07] MEDS: AZELASTINE HCL 0.1% NASAL 200 SPRAYS/27,400 MCG BTL SCH ×2 (08:51→21:51)
[2022-07-07] MEDS: CETIRIZINE HCL 10 MG TABLET PO SCH (08:51)
[2022-07-07] MEDS: VENLAFAXINE HCL XR 150 MG CAPXR PO SCH (08:51)
[2022-07-07] MEDS: AMPHETAMINE ASP/SULF/DEXTRAMPH ER 20 MG CAP PO SCH (09:01)
[2022-07-07] MEDS: methylPREDNISolone 40 MG in SYRINGE 0 ML IV SCH ×3 (09:01→21:50)
[2022-07-07] MEDS: BENZONATATE 100 MG CAPSULE PO PRN ×2 (09:01→16:11)
[2022-07-07] MEDS: ENOXAPARIN INJ 40 MG/0.4 ML SYR SQ SCH ×2 (09:03→19:37)
--- NOTE | 2022-07-07 14:40 | Hospitalist Progress Note ---
Date of Service July 07, 2022 Assessment & Plan (1) Multifocal pneumonia: (2) Hypoxia: Plan: + metapneumonic virus This 26-year-old female presents with ongoing respiratory illness and possible mild asthma exacerbation. 1. Multifocal pneumonia on CAT scan, possibly viral pneumonia. Asthma exacerbation. Procalcitonin is negative. Having cold-like symptoms with cough and wheezing going on since last . Initially on admission question of aspiration, so empirically placed on Zosyn and doxycycline. Received Decadron in the ER.Continue with IV Solu-Medrol 40 mg t.i.d., nebs around the clock and p.r.n. T Resp biofire positive for metapneumonic virus. Droplet precautions. Will de-escalate Abx from zosyn to rocephin, cont. to monitor Sputum cultx obtained and pending 2. Mild elevation of D-dimer. CT chest, no pulmonary embolus. 3. History of generalized anxiety disorder, attention-deficit/hyperactivity disorder, depression. Continue her home Adderall and venlafaxine. 4. History of non-seasonal allergic rhinitis. Continue levocetirizine. DVT prophylaxis: Placed on Lovenox. DISPOSITION: med tele. Expect to discharge home and follow with family doctor. Admission and Anticipated Discharge Date Admission Date: July 06, 2022 Subjective Pt seen in follow up of hypoxia, hx of asthma, + metapneumovirus Currently sitting up in chair in NAD Reports feeling better and having more energy Currently on room air No fevers chills chest pain, no abdominal pain Review of Systems Review of Systems: All systems reviewed & are unremarkable except as noted in Subjective Physical Exam Physical Exam: GENERAL:obese F, not in acute distress. HEENT: NC/AT. EOMI. Pupils equal, round and reactive to light. Oral mucosa moist. NECK: No JVD. No neck masses. CARDIOVASCULAR: S1 and S2 heard. Regular rate and rhythm. No murmur, no gallop. RESPIRATORY: Normal AP diameter. No accessory muscle use. Bilateral rhonchi heard. No obvious wheezing. ABDOMEN: Soft, bowel sounds present, nontender, no distention. NEURO: Alert and oriented. Speech is clear. No facial droop. Obeys commands. EXTREMITIES: No edema, no erythema. Results & Data Results & Data Vital Signs (Past 12 Hours) Vital Signs Temp Pulse Pulse Resp BP Pulse Ox O2 Del Method 07/07/22 11:25 37.4 C 96 H 16 113/68 93 Room Air 07/07/22 10:52 89 18 95 Room Air 07/07/22 10:48 Nasal Cannula 07/07/22 08:23 36.9 C 83 16 125/67 91 Nasal Cannula 07/07/22 07:17 72 07/07/22 07:17 95 H 19 95 Nasal Cannula 07/07/22 03:00 36.8 C 87 20 105/72 89 L Nasal Cannula O2 Flow Rate 07/07/22 11:25 07/07/22 10:52 07/07/22 10:48 2 07/07/22 08:23 1 07/07/22 07:17 07/07/22 07:17 2 07/07/22 03:00 2 Laboratory Results 07/07/22 07/07/22 Range/Units 05:33 05:33 WBC 10.18 (4.8-10.8) K/ul RBC 4.28 (4.20-5.40) M/uL Hgb 13.6 (12.0-16.0) g/dl Hct 40.4 (37.0-47.0) % MCV 94.4 (80.0-100.0) fL MCH 31.8 (25.0-34.0) pg MCHC 33.7 (32.0-36.0) g/dL RDW Std Deviation 47.9 H (36.4-46.3) fL RDW Coeff of Jovanni 13.8 (11.5-14.5) % Plt Count 263 (130-400) K/uL MPV 10.0 (9.4-12.4) fL Immature Gran % (Auto) 0.7 % Neut % (Auto) 85.8 % Lymph % (Auto) 7.6 % Carter % (Auto) 5.8 % Eos % (Auto) 0.0 % Baso % (Auto) 0.1 % Neut # (Auto) 8.74 H (1.40-6.50) K/uL Lymph # (Auto) 0.77 L (1.2-3.4) K/uL Carter # (Auto) 0.59 (0.11-0.59) K/uL Eos # (Auto) 0.00 (0-0.50) K/uL Baso # (Auto) 0.01 (0-0.2) K/uL Immature Gran # (Auto) 0.07 (0.01-0.20) K/uL Sodium 140 (136-145) mmol/L Potassium 4.8 D (3.5-5.1) mmol/L Chloride 104 (98-107) mmol/L Carbon Dioxide 28 (21-32) mmol/L Anion Gap 8 (3-11) BUN 11 (6-23) mg/dl Creatinine 0.70 (0.6-1.2) mg/dl Est Cr Clr Drug Dosing 143.0 ml/min Est GFR ( Amer) 138.6 ml/min Est GFR (Non-Af Amer) 119.6 ml/min BUN/Creatinine Ratio 15.7 (10-20) Glucose 122 H (70-99(Fasting)) mg/dl Calcium 9.0 (8.6-10.3) mg/dl Magnesium 2.2 (1.7-2.4) mg/dl Medications Administered Current Inpatient Medications Acetaminophen (Acetaminophen 325 Mg Tab) 650 mg PO Q4H PRN PRN Reason: Pain or Fever Stop: 08/05/22 08:04 Last Admin: 07/06/22 21:51 Dose: 650 mg Albuterol (Albuterol Hfa 8 Gm Inhaler) 2 puffs INH Q4H PRN PRN Reason: Shortness Of Breath Or Wheezing Stop: 08/05/22 08:04 Amphetamine/Dextroamphetamine (Amphetamine Asp/Sulf/Dextramph Er 20 Mg Cap) 40 mg PO QAM [facility] Stop: 07/20/22 08:59 Last Admin: 07/07/22 09:01 Dose: 40 mg Azelastine HCl (Azelastine Hcl 0.1% Nasal 200 Sprays/27,400 Mcg Btl) 2 sprays NA BID [facility] Stop: 08/05/22 08:59 Last Admin: 07/07/22 08:51 Dose: 2 sprays Benzonatate (Benzonatate 100 Mg Capsule) 100 mg PO TID PRN PRN Reason: Cough Stop: 08/05/22 08:04 Last Admin: 07/07/22 09:01 Dose: 100 mg Cetirizine HCl (Cetirizine Hcl 10 Mg Tablet) 10 mg PO DAILY [facility] Stop: 08/05/22 08:59 Last Admin: 07/07/22 08:51 Dose: 10 mg Enoxaparin Sodium (Enoxaparin Inj 40 Mg/0.4 Ml Syr) 40 mg SQ Q12H [facility] Stop: 08/05/22 08:04 Last Admin: 07/07/22 09:03 Dose: 40 mg Guaifenesin (Guaifenesin Sugar Free 200 Mg/10 Ml Udc) 200 mg PO Q6H PRN PRN Reason: Cough Stop: 08/05/22 08:04 Last Admin: 07/07/22 11:22 Dose: 200 mg Hydroxyzine HCl (Hydroxyzine Hcl 25 Mg Tab) 25 mg PO HS PRN PRN Reason: Anxiety Stop: 08/05/22 08:04 Piperacillin Sod/Tazobactam (Sod 4.5 gm/ Dextrose) 120 mls @ 30 mls/hr IV Q8H [facility]; Protocol Stop: 07/13/22 12:59 Last Admin: 07/07/22 13:52 Dose: 30 mls/hr Doxycycline Hyclate 100 mg/ (Dextrose) 110 mls @ 50 mls/hr IV Q12H [facility] Stop: 07/13/22 08:29 Last Infusion: 07/07/22 11:22 Dose: Infused Methylprednisolone 40 mg/ (Syringe) 0.64 mls @ 1.5 mls/min IV TID [facility] Stop: 08/05/22 08:59 Last Admin: 07/07/22 09:01 Dose: 1.5 mls/min Ipratropium [place] (Ipratropium [place] Neb Soln 0.02% 2.5 Ml Vial) 0.5 mg INH QIDR [facility] Stop: 08/05/22 08:04 Last Admin: 07/07/22 10:50 Dose: 0.5 mg Levalbuterol HCl (Levalbuterol 1.25mg/0.5ml Neb) 1.25 mg INH QIDR [facility] Stop: 08/05/22 08:04 Last Admin: 07/07/22 10:50 Dose: 1.25 mg Levalbuterol HCl (Levalbuterol Hcl 1.25 Mg/3 Ml Neb) 1.25 mg NEB Q4H PRN; Protocol PRN Reason: Shortness Of Breath Or Wheezing Stop: 08/05/22 08:04 Nitroglycerin (Nitroglycerin Sl 0.4 Mg/Tab Tab) 0.4 mg SL UD PRN PRN Reason: Chest Pain Stop: 08/05/22 08:04 Polyethylene Glycol (Polyethylene (Miralax) 17 Gm Pack) 17 gm PO DAILY PRN PRN Reason: Constipation Stop: 08/05/22 08:04 Venlafaxine HCl (Venlafaxine Hcl Xr 150 Mg Capxr) 150 mg PO [facility] Stop: 08/05/22 08:59 Last Admin: 07/07/22 08:51 Dose: 150 mg
[2022-07-07] MEDS ORDERED: cefTRIAXone SODIUM 1,000 MG in DEXTROSE 5% AD-VAN 50 ML IV SCH (15:15)
[2022-07-07] MEDS: ACETAMINOPHEN 325 MG TAB PO PRN (21:57)
[2022-07-08] MEDS: guaiFENesin SUGAR FREE 200 MG/10 ML UDC PO PRN (03:35)
[2022-07-08] MEDS: IPRATROPIUM BROMIDE NEB SOLN 0.02% 2.5 ML VIAL INH SCH ×2 (07:09→11:05)
[2022-07-08] MEDS: LEVALBUTEROL 1.25MG/0.5ML NEB INH SCH ×2 (07:09→11:05)
[2022-07-08 07:21] LABS: Mean Corpuscular Hemoglobin 31.1 pg (25.0-34.0); Mean Corpuscular Hgb Conc 32.5 g/dL (32.0-36.0); Mean Corpuscular Volume 95.7 fL (80.0-100.0); Mean Platelet Volume 9.9 fL (9.4-12.4); Platelet Count 270 K/uL (130-400); RDW Coefficient of Variation 13.8 % (11.5-14.5); RDW Standard Deviation 49.1 fL (36.4-46.3); Red Blood Count 4.18 M/uL (4.20-5.40); White Blood Count 8.05 K/ul (4.8-10.8)
[2022-07-08 07:34] LABS: Calcium 9.1 mg/dl (8.6-10.3); Creatinine Clr Calc Pharmacy 161.2 ml/min; Est GFR (African American) 144.2 ml/min; Est GFR (Non-African American) 124.4 ml/min; Magnesium 2.2 mg/dl (1.7-2.4); Potassium 4.3 mmol/L (3.5-5.1)
[2022-07-08] MEDS: methylPREDNISolone 40 MG in SYRINGE 0 ML IV SCH (08:48)
[2022-07-08] MEDS: AMPHETAMINE ASP/SULF/DEXTRAMPH ER 20 MG CAP PO SCH (08:48)
[2022-07-08] MEDS: VENLAFAXINE HCL XR 150 MG CAPXR PO SCH (08:48)
[2022-07-08] MEDS: CETIRIZINE HCL 10 MG TABLET PO SCH (08:48)
[2022-07-08] MEDS: BENZONATATE 100 MG CAPSULE PO PRN (08:48)
[2022-07-08] MEDS: AZELASTINE HCL 0.1% NASAL 200 SPRAYS/27,400 MCG BTL SCH (08:49)
--- NOTE | 2022-07-08 08:49 | Discharge Summary ---
Discharge Summary Date of Service July 08, 2022 Notes For Next Care Provider Consider repeat chest imaging to ensure resolution of pneumonia in a few weeks. Consider additional pneumonia/flu vaccinations as needed Medication Changes From Visit Doxycycline Augmentin Albuterol nebulizer PRN Robitussin with codeine PRN Admission HPI Per Admitting Provider HISTORY OF PRESENT ILLNESS: This is a 26-year-old female with past medical history significant for nonseasonal allergic rhinitis, mild persistent asthma, deviated nasal septum, dermatographism, history of allergic bilateral conjunctivitis, history of migraines, generalized anxiety disorder, ADHD, depression, comes with ongoing cough and cold-like symptoms since last . Once in a while she brings up phlegm, lot of cough, cough is causing some headache. Says she had high temperatures of 103F degrees. She went to [facility] on Tuesday and was prescribed Augmentin. As her sympt oms not getting better came to the ER. In the ER, at one point, she was desaturating to 88%, requiring 2 L of oxygen and D-dimer was elevated at 590. CTA chest was done. There is no PE, but showed multifocal pneumonia. SARS-CoV-2 PCR negative. Influenza and RSV negative. Procalcitonin 0.07. The patient is resting comfortably, hemodynamically stable. Denies any chest pain. Appetite is down because of illness. Feels nauseous, but no vomiting, no abdominal pain. Normal bowel and bladder movements. No blurred visions, no earache. Has some runny nose. No sore throat. Admission Exam Per Admitting Provider PHYSICAL EXAMINATION: GENERAL: The patient is obese, not in acute distress. VITAL SIGNS: Temperature 35.9, pulse 84, respiratory rate 18, blood pressure 119/76, oxygen 94% on 2 liters. HEENT: Pupils equal, round and reactive to light. Oral mucosa moist. NECK: No JVD. No neck masses. CARDIOVASCULAR: S1 and S2 heard. Regular rate and rhythm. No murmur, no gallop. RESPIRATORY SYSTEM: Normal AP diameter. No accessory muscle use. Bilateral rhonchi heard. No obvious wheezing. ABDOMEN: Soft, bowel sounds present, nontender, no distention. CENTRAL NERVOUS SYSTEM: Alert and oriented. Speech is clear. No facial droop. Obeys commands. EXTREMITIES: No edema, no erythema. Principal Dx & Hospital Course #1 = Principal Diagnosis (1) Multifocal pneumonia: (2) Hypoxia: + metapneumonic virus This 26-year-old female presents with ongoing respiratory illness and possible mild asthma exacerbation. 1. Multifocal pneumonia on CAT scan, possibly viral pneumonia. Asthma exacerbation. Procalcitonin is negative. Having cold-like symptoms with cough and wheezing going on since last . Initially on admission question of aspiration, so empirically placed on Zosyn and doxycycline. Received Decadron in the ER.Continue with IV Solu-Medrol 40 mg t.i.d., nebs around the clock and p.r.n. T Resp biofire positive for metapneumonic virus. Droplet precautions. Will de-escalate Abx from zosyn to rocephin, cont. to monitor Sputum cultx obtained and pending 2. Mild elevation of D-dimer. CT chest, no pulmonary embolus. 3. History of generalized anxiety disorder, attention-deficit/hyperactivity disorder, depression. Continue her home Adderall and venlafaxine. 4. History of non-seasonal allergic rhinitis. Continue levocetirizine. DVT prophylaxis: Placed on Lovenox. DISPOSITION: med tele. Expect to discharge home and follow with family doctor. Plan 26 yo morbidly obese asthmatic patient was admitted with multifocal pneumonia 2/2 human metapneumovirus. She required supplemental oxygen initially and was placed on broad spectrum antibiotics. She was also initially placed on IV solumedrol. Nebulized bronchodilator therapies were administered. A CTA chest revealed no PE with diffuse airspace opacities throughout both lungs, right greater than left. Bilateral hilar LAD was also present (up to 1.2cm) which was felt to be reactive. At time of discharge she was reliably off oxygen and feeling better from a symptom standpoint. She was speaking in full sentences and there was no wheezing on exam. She was fever free for 48 hours, and was hemodynamically stable and afebrile and tolerating PO. No blood cultures were performed this admission. She was discharged in stable condition with close primary care follow-up recommended. A nebulizer machine was provided at discharge. Discharge Exam mentating clearly lungs clear to auscultation throughout cardiac exam unremarkable no gross focal neurologic deficits. Updated Medication List Medication Instructions Recorded Confirmed Type albuterol sulfate 90 mcg/actuation 2 puff inhalation Q4H PRN 07/06/22 07/06/22 History aerosol inhaler Shortness Of Breath Or Wheezing azelastine 137 mcg (0.1 %) nasal 2 spray intranasal BID 07/06/22 07/06/22 History spray aerosol benzonatate 100 mg capsule 100 mg PO TID PRN Cough 07/06/22 07/06/22 History dextroamphetamine-amphetamine ER 40 mg PO QAM 07/06/22 07/06/22 History 20 mg 24hr capsule,extend release hydroxyzine HCl 25 mg tablet 25 mg PO HS PRN Anxiety 07/06/22 07/06/22 History levocetirizine 5 mg tablet 5 mg PO DAILY 07/06/22 07/06/22 History tretinoin 0.05 % topical cream 1 applic topical HS PRN NEEDED 07/06/22 07/06/22 History PER PT venlafaxine 150 mg 150 mg PO QAM 07/06/22 07/06/22 History capsule,extended release 24 hr albuterol sulfate 2.5 mg/0.5 mL 2.5 mg (0.5 mL) inhalation Q8H PRN 07/08/22 Rx solution for nebulization shortness of breath or wheezing #30 ea amoxicillin 875 mg-potassium 1 tab PO BID #10 tabs 07/08/22 Rx clavulanate 125 mg tablet codeine 10 mg-guaifenesin 100 mg/5 10 ml PO Q6H PRN cough #120 mL 07/08/22 Rx mL oral liquid doxycycline hyclate 100 mg capsule 100 mg PO BID #10 caps 07/08/22 Rx fluticasone propionate 50 1 spray intranasal DAILY PRN 07/08/22 Rx mcg/actuation nasal allergy symptoms #16 grams spray,suspension (Flonase Allergy Relief) Hospital Stay Data Consultations 07/06/22 04:55 ED Decision to Admit Stat Diagnostic Imagining Performed 07/06/22 02:37 CT angio chest PE protocol Stat Pending Results Patient Have Any Pending Studies at Discharge: No Discharge Instructions Given to Patient (Per Discharging Provider) Please complete antibiotic course as prescribed below. It is recommended that you take time off work, at least one week, to allow your body time to recover from this illness. Please discuss pneumonia and flu vaccination with your primary care physician on followup. You are being given a nebulizer machine at discharge which will be for rescue breathing only. Please avoid using this on a regular basis. Repeat chest imaging may be considered in 4-6 weeks to ensure complete resolution of your pneumonia. It was a pleasure taking care of you! Please call if you have any questions or problems. You can reach a [facility] hospitalist on duty at [facility] 24 hours a day by calling [phone]. Take care of yourself. Jovana Upton, [place] Hospitalist Total Time Total Time Spent Total Time Spent (In Minutes): 60
[2022-07-08] MEDS: ENOXAPARIN INJ 40 MG/0.4 ML SYR SQ SCH (08:51)
[2022-07-08] MEDS: DOXYCYCLINE HYCLATE 100 MG in DEXTROSE 5% 100 ML IV SCH (08:51)
== END 2022-07-08 12:08 | disposition home or self-care (01) | DRG 194 ==
LOC: ED 23:59 → SUATTDRO 07-06 05:34 → EDINP 07-06 05:34 → 2N 07-06 08:06